=== PATIENT | male | born 1970 | race Caucasian/White ===

== ENCOUNTER 2020-03-26 17:38 | Outpatient (REF) | payer MEDICARE, MEDICAID, SELFPAY | END 2020-03-26 17:39 | disposition home or self-care (01) | LOC: HO.LAB 17:38 | PROVIDERS: Visit Provider Nurse Practitioner Family | DX: L03.113 Cellulitis of right upper limb (principal) | CPT/HCPCS: 87071; 87077; 87147; 87186; 87205 ==

== ENCOUNTER 2020-07-22 11:33 | Day surgery (SDC) | payer MEDICARE, MEDICAID, SELFPAY ==
[2020-07-15 13:12] VITALS: BMI 35.5
--- NOTE | 2020-07-18 09:51 | P.CONAN_ITS ---
Documented by User: Yumiko Omer 07/18/20 09:52 HPI - Anesthesia Eval Consult details Narrative: 50yo M for Colonoscopy PMFSH Active Problems Active Problems: All Active Problems (Updated 07/15/20 @ 13:19 by Thi Rosales) Cellulitis (Acute) Cellulitis (Acute) Physical exam (Acute) Screening for colon cancer (Acute) Cognitive developmental delay (Acute) Past Medical History Medical History (Updated 07/22/20 @ 12:28 by Anisa Kimble) Cognitive developmental delay H/O idiopathic seizure Hx of anxiety disorder Hx of bipolar disorder Lab test negative for COVID-19 virus Sleep apnea Family History Family History Father No problems noted. Mother No problems noted. Surgical History Surgical History H/O hernia repair H/O rectal polypectomy Hx of colonoscopy S/P repair of hydrocele Social History Social History Household Members Other:: resides in [facility] Housing Other:: [facility] Are you a primary care navigator to a significant other at home: No Do you presently have visiting nurse or other home services: No Alcohol intake: never Smoking Status: Never smoker Use of substances other than those prescribed or required for medical reasons: No Have you been hit, kicked, punched, or otherwise hurt by someone within the past year? If so, by whom?: No Advance Directives: No (HCP) Advance Directives Information Provided: No (awaiting fax from [facility]) Advance Directives on File: No Recently lost weight without trying: No Current occupational status: unemployed Current occupation: developmental delay-resides in [facility] Meds Allergies Allergy/AdvReac Type Severity Reaction Status Date / Time No Known Allergies Allergy Verified 07/22/20 11:57 Home Medications Medication Instructions Recorded Confirmed Last Taken Type bimatoprost 0.01 % eye drops 1 drp OPHTHALMIC (EYE) BEDTIME 03/26/20 07/15/20 Unknown History fluticasone propionate 50 2 spray INTRANASAL QAM 03/26/20 07/15/20 Unknown History mcg/actuation nasal spray,suspension naproxen 500 mg tablet 500 mg PO Q12H PRN 03/26/20 04/21/20 Unknown History olanzapine 15 mg tablet 15 mg PO BEDTIME 03/26/20 07/15/20 Unknown History pediatric multivitamin no.17 1 tab PO QAM 03/26/20 07/15/20 Unknown History propranolol 60 mg tablet 60 mg PO BID 03/26/20 07/22/20 07/22/20 09:30 History sennosides 8.6 mg tablet 8.6 mg PO BEDTIME 03/26/20 07/22/20 07/22/20 09:30 History valproic acid (as sodium salt) 250 1,000 mg PO BID 03/26/20 07/22/20 07/22/20 09:30 History mg/5 mL oral solution dorzolamide 22.3 mg-timolol 6.8 1 drp OPHTHALMIC (EYE) BID 04/21/20 07/15/20 Unknown History mg/mL eye drops acetaminophen 2 tab PO Q4H PRN 07/15/20 07/15/20 Unknown History ibuprofen 200 mg PO Q4H PRN 07/15/20 07/15/20 Unknown History olanzapine 5 mg PO QAM 07/15/20 07/22/20 07/22/20 09:30 History Exam Exam Date and Time: July 18, 2020 0951 Height,Weight and Vital Signs: Height 5 ft 6 in Weight 99.79 kg Assessment and Plan Assessment Anesthesia Assessment: Chart Reviewed Documented by User: Anisa Kimble 07/22/20 12:40 [facility] Past Medical History Medical History (Updated 07/22/20 @ 12:28 by Anisa Kimble) Cognitive developmental delay H/O idiopathic seizure Hx of anxiety disorder Hx of bipolar disorder Lab test negative for COVID-19 virus Sleep apnea Family History Family History Father No problems noted. Mother No problems noted. Family history of problems with anesthesia: No Surgical History Surgical History H/O hernia repair H/O rectal polypectomy Hx of colonoscopy S/P repair of hydrocele History of Problems with Anesthesia: No Social History Social History Household Members Other:: resides in [facility] Housing Other:: [facility] Are you a primary care navigator to a significant other at home: No Do you presently have visiting nurse or other home services: No Alcohol intake: never Smoking Status: Never smoker Use of substances other than those prescribed or required for medical reasons: No Have you been hit, kicked, punched, or otherwise hurt by someone within the past year? If so, by whom?: No Advance Directives: No (HCP) Advance Directives Information Provided: No (awaiting fax from [facility]) Advance Directives on File: No Recently lost weight without trying: No Current occupational status: unemployed Current occupation: developmental delay-resides in [facility] Meds Allergies Allergy/AdvReac Type Severity Reaction Status Date / Time No Known Allergies Allergy Verified 07/22/20 11:57 Home Medications Medication Instructions Recorded Confirmed Last Taken Type bimatoprost 0.01 % eye drops 1 drp OPHTHALMIC (EYE) BEDTIME 03/26/20 07/15/20 Unknown History fluticasone propionate 50 2 spray INTRANASAL QAM 03/26/20 07/15/20 Unknown History mcg/actuation nasal spray,suspension naproxen 500 mg tablet 500 mg PO Q12H PRN 03/26/20 04/21/20 Unknown History olanzapine 15 mg tablet 15 mg PO BEDTIME 03/26/20 07/15/20 Unknown History pediatric multivitamin no.17 1 tab PO QAM 03/26/20 07/15/20 Unknown History propranolol 60 mg tablet 60 mg PO BID 03/26/20 07/22/20 07/22/20 09:30 History sennosides 8.6 mg tablet 8.6 mg PO BEDTIME 03/26/20 07/22/20 07/22/20 09:30 History valproic acid (as sodium salt) 250 1,000 mg PO BID 03/26/20 07/22/20 07/22/20 09:30 History mg/5 mL oral solution dorzolamide 22.3 mg-timolol 6.8 1 drp OPHTHALMIC (EYE) BID 04/21/20 07/15/20 Unknown History mg/mL eye drops acetaminophen 2 tab PO Q4H PRN 07/15/20 07/15/20 Unknown History ibuprofen 200 mg PO Q4H PRN 07/15/20 07/15/20 Unknown History olanzapine 5 mg PO QAM 07/15/20 07/22/20 07/22/20 09:30 History Exam Height,Weight and Vital Signs: Vital Signs Temp Pulse Resp BP Pulse Ox 07/22/20 12:24 97.9 F 67 18 116/70 97 Airway Mallampati Class: III TM Dist: >3cm Neck ROM: Full Denture: Upper Loose/Missing/Broken Teeth: Yes (Only few teeth bottom) Heart: RRR Lungs: CTAB Assessment and Plan Assessment Anesthesia Assessment: Anesthesia Plan Discussed and Chart Reviewed Final Anesthetic Review NPO: Yes ASA Class: III Final Preanesthetic Review: No Changes in Pt Med Stat, Meds/Allgs Chart Reviewed, Consent Obtained/Reviewed and Anes Risks/Benef Reviewed Patient Risk: Intermediate Procedure Risk: Low Assessment/Block/Sedation in SS: Assess/Block/Sedation-SS Anesthetic Plan Anesthetic Plan: MAC: Disposition: Standard PACU
[2020-07-22 12:24] VITALS: BP 116/70; PULSE 67; RESP 18; TEMP 36.6; O2SAT 97
[2020-07-22] MEDS: Lactated Ringers 1,000 ML 100 ML IVCONT (12:27)
[2020-07-22 13:17] VITALS: BP 108/62; PULSE 63; RESP 20; TEMP 36.8; O2SAT 96
--- NOTE | 2020-07-22 13:20 | PM.OP ---
Brief Operative Note Date of Service: 07/22/20 Pre-op diagnosis: COLON CANCER SCREENING Post-op diagnosis: other (NORMAL EXAM, 1+INTERNAL HEMORRHOIDS) Procedure: COLONOSCOPY Implants: NONE Surgeon: Azucena Ace MD Anesthesia: MAC (LIEBIENEC, STUDENT ACCOUNTS COORDINATOR) Estimated blood loss (mL): 0 Pathology: none sent Condition: stable Disposition: PACU
--- NOTE | 2020-07-22 13:22 | W.PM.OPN ---
Operative Note Operative Note Date of Service: 07/22/20 Narrative: Date of Service: 07/22/20 Pre-op diagnosis: COLON CANCER SCREENING Post-op diagnosis: other (NORMAL EXAM, 1+INTERNAL HEMORRHOIDS) Procedure: COLONOSCOPY Implants: NONE Surgeon: Azucena Ace MD Anesthesia: MAC (LIEBIENEC, KILN HEAD HOUSE OPERATOR) FINDINGS: ROD: good tone, prostate wnl scope introduced with no difficulty. Mildly redundant left colon. Advanced to transverse, ascending colon and with gentle assist right in to the cecal cap. Appendiceal orifice seen, ileocecal valve was well seen. Mucosa had melanosis coli changes. PREP: GOOD TO EXCELLENT. Slow withdrawal, good rotational views--no lesions noted. ARV--clear 1+ Internal hemorrhoids noted. Estimated blood loss (mL): 0 Pathology: none sent Condition: stable Disposition: PACU PLAN==CURRENT RECOMMENDATIONS FOR REPEAT COLON CANCER SCREENING WOULD BE 10 YEARS.
[2020-07-22 13:32] VITALS: BP 142/79; PULSE 69; RESP 18; TEMP 36.8; O2SAT 96
== END 2020-07-22 14:10 | disposition home or self-care (01) ==
PROVIDERS: PCP Internal Medicine; Visit Provider Internal Medicine Gastroenterology
PROC: 0DJD8ZZ Inspection of Lower Intestinal Tract, Via Natural or Artificial Opening Endoscopic (ICD-10-PCS; CPT 45378; principal; 2020-07-22 12:50)
DX: Z12.11 Encounter for screening for malignant neoplasm of colon (principal); K64.8 Other hemorrhoids; Q43.8 Other specified congenital malformations of intestine
CPT/HCPCS: G0121

== ENCOUNTER → 2020-08-12 13:59 | Outpatient (BNVA) | payer MEDICARE, MEDICAID, SELFPAY | PROVIDERS: PCP Internal Medicine; Visit Provider Nurse Practitioner Family | DX: Z13.89 Encounter for screening for other disorder (principal) | CPT/HCPCS: Q3014 ==

== ENCOUNTER 2022-05-04 10:22 | Outpatient (REF) | payer MEDICARE, MEDICAID, SELFPAY ==
--- NOTE | ~2022-05-04 | XR_ITS ---
EXAMINATION: BILATERAL KNEE X-RAY CLINICAL INFORMATION: Pain COMPARISON: Previous x-rays 2019 and 2014 TECHNIQUE: 2 views of each knee FINDINGS: Left: Bone alignment is normal. No fracture or dislocation. Normal joint spaces. Small osteophyte at the quadriceps tendon insertion to the patella. No joint effusion. Right: Bone alignment is normal. No fracture or dislocation. Normal joint spaces. No joint effusion. Small osteophyte at the quadriceps tendon insertion to the patella. XR/XR knee LT 2V IMPRESSION: Small osteophytes at the quadriceps tendon insertion to the patella bilaterally. Otherwise unremarkable exam.
--- NOTE | ~2022-05-04 | XR_ITS ---
EXAMINATION: BILATERAL KNEE X-RAY CLINICAL INFORMATION: Pain COMPARISON: Previous x-rays 2019 and 2014 TECHNIQUE: 2 views of each knee FINDINGS: Left: Bone alignment is normal. No fracture or dislocation. Normal joint spaces. Small osteophyte at the quadriceps tendon insertion to the patella. No joint effusion. Right: Bone alignment is normal. No fracture or dislocation. Normal joint spaces. No joint effusion. Small osteophyte at the quadriceps tendon insertion to the patella. XR/XR knee RT 2V IMPRESSION: Small osteophytes at the quadriceps tendon insertion to the patella bilaterally. Otherwise unremarkable exam.
[2022-05-04 10:50] LABS: MANUAL DIFF FLAG NO
[2022-05-04 11:36] LABS: Basophils Percent Auto 0.3 % (0-2); Eosinophils Percent Auto 0.4 % (0-4); Hematocrit 43.8 % (42.0-52.0); Hemoglobin 14.2 g/dl (14.0-18.0); Imm Gran Pct Auto 1.4 % (0.0-0.4); Lymphocytes Absolute Auto 1.9 X10*3/uL (1.2-4.9); Lymphocytes Percent Auto 25.8 % (20-40); Mean Corpuscular HGB Conc 32.4 g/dl (31.0-36.0); Mean Corpuscular Hemoglobin 29.5 pg (27.0-33.0); Mean Corpuscular Volume 90.9 fL (80.0-98.0); Mean Platelet Volume 11.1 fL (9.4-12.4); Monocytes Absolute Auto 0.8 X10*3/uL (0.1-1.2); Monocytes Percent Auto 10.8 % (2-11); Neutrophils Absolute Auto 4.5 x10*3/uL (2.0-8.3); Neutrophils Percent Auto 61.3 % (45-73); Platelet Count 125 X10*3/uL (160-400); Red Blood Count 4.82 X10*6/uL (4.60-5.80); White Blood Count 7.3 X10*3/uL (4.8-10.8)
[2022-05-04 11:57] LABS: Alanine Aminotransferase 30 U/L (0-40); Albumin Level 3.8 g/dL (3.5-5.0); Alkaline Phosphatase 61 U/L (39-117); Anion Gap 14 (12-20); Aspartate Amino Transferase 24 U/L (5-37); Bilirubin Total 0.3 mg/dL (0.0-1.0); Blood Urea Nitrogen 17 mg/dL (9-16); Calcium 9.1 mg/dL (8.4-10.2); Carbon Dioxide 28 mmol/L (22-29); Chloride 106 mmol/L (96-108); Cholesterol 186 mg/dL; Estimated Glomerular Filt Rate > 60; Glucose Fasting 119 mg/dL (60-99); HDL Cholesterol 35 mg/dL; LDL Cholesterol Calculated 117 mg/dl; Potassium 4.8 mmol/L (3.3-5.1); Sodium 143 mmol/L (135-145); Total Protein 7.6 g/dL (6.5-8.0); Triglycerides 170 mg/dL
[2022-05-04 12:20] LABS: Thyroid Stimulating Hormone 0.77 uIU/mL (0.32-4.0)
== END 2022-05-04 10:23 | disposition home or self-care (01) ==
LOC: HO.LAB 10:22
PROVIDERS: PCP Internal Medicine; Visit Provider Internal Medicine
DX: Z13.0 Encounter for screening for diseases of the blood and blood-forming organs and certain disorders involving the immune mechanism (principal); E03.9 Hypothyroidism, unspecified; E78.5 Hyperlipidemia, unspecified; I10 Essential (primary) hypertension; M25.562 Pain in left knee; M25.561 Pain in right knee
CPT/HCPCS: 36415; 73560; 80053; 80061; 84443; 85025

== ENCOUNTER → 2022-11-04 09:24 | Outpatient (BNVA) | payer MEDICARE, MEDICAID, SELFPAY | PROVIDERS: PCP Internal Medicine; Visit Provider Orthopaedic Surgery | DX: S86.812A Strain of other muscle(s) and tendon(s) at lower leg level, left leg, initial encounter (principal) | CPT/HCPCS: 99202 ==

== ENCOUNTER 2023-05-02 12:59 | Outpatient (AMB) | payer MEDICARE, MEDICAID, SELFPAY ==
[2023-05-02 13:04] VITALS: BP 120/78; PULSE 83; O2SAT 98; BMI 36.0
--- NOTE | 2023-05-02 13:04 | MHC.PC.OV ---
Vital Signs 05/02/23 13:04 Height 5 ft 6 in Weight 223 lb BMI 36.0 BP 120/78 Blood Pressure Location Lt brachial Position Sitting Pulse 83 Pulse Source Pulse Oximeter Pulse Oximetry (%) 98 Oxygen Delivery Method Room Air Intake Visit Reasons: PE/ month f/u Fixed Wing Aircraft Flight Mechanic Required: No Team Foreman: Present Accompanied by: Self / Same As Patient Allergies No Known Allergies Allergy (Verified 05/02/23 13:06) Medication List - Last Reconciled 05/03/23 by Russell Burks MD acetaminophen 650 mg (2 x 325 mg) PO Q4H PRN 30 days bacitracin topical 2 times a day if needed q12 hrs- minor scrapes, wounds, rash, thomson- pea sized amount bimatoprost 0.01% 1 drp ophthalmic (eye) BEDTIME dorzolamide-timolol 22.3-6.8 mg/mL 1 drp ophthalmic (eye) BID fluticasone propionate 50 mcg/actuation 2 sprays intranasal QAM guaifenesin (Adult Tussin Chest Congestion) 200 mg (10 mL) PO Q4H PRN ibuprofen 200 mg PO Q4H PRN olanzapine 5 mg PO QAM olanzapine 15 mg PO BEDTIME pediatric multivitamin no.17 1 tab PO QAM propranolol 60 mg PO BID sennosides (senna) 8.6 mg PO BEDTIME valproic acid (as sodium salt) 1,000 mg PO BID Tobacco use date assessed: 07/14/22 Dental Screening Dental Screen Date: 05/02/23 Did you have a dental visit in the last 12 months?: Yes Did you have a dental problem in the last 6 months where you did not have access to dental care?: No Was dental information given to patient?: Patient has dentist HPI PE/ month f/u HPI Details has cognitive delay and doing well with psych [facility] Medical History (Updated 11/04/22 @ 10:08 by Hermes Osuna MD) Strain of left calf muscle Obesity H/O idiopathic seizure Lab test negative for COVID-19 virus Hx of anxiety disorder Hx of bipolar disorder Sleep apnea Cognitive developmental delay Surgical History Hx of colonoscopy S/P repair of hydrocele H/O rectal polypectomy H/O hernia repair Family History Father No problems noted. Mother No problems noted. Household Members Other:: resides in senior care Housing: Apartment Housing Other:: senior care Are you a primary spiritual care coordinator to a significant other at home: No Do you presently have visiting nurse or other home services: No Alcohol intake: current Alcohol intake frequency: does not drink Patient Tobacco Use Status: Never used Tobacco e-Cigarette/Vaping Use: Never Used Second Hand Smoke Exposure: No service: No Current occupational status: unemployed Current occupation: developmental delay-resides in senior care Cognitive needs: No Hearing needs: Yes Vision needs: No Questionnaire Thrive Questionnaire Date Thrive assessed: 07/14/22 HOWARD-7 AMB Questionnaire HOWARD-7 Date HOWARD - 7 assessed: 07/14/22 Source: Developed by Drs. Juan Carlos Beasley, Kailey Mane, Jose White and colleagues, with an educational viola from [employer]. Review of Systems Const Denies chills, Denies fatigue, Denies headache(s) and Denies weight loss Eyes Denies change in vision, Denies diplopia and Denies eye pain ENT Denies vertigo, Denies dizziness, Denies headache(s) and Denies nasal discharge Card Denies chest pain, Denies rapid heart rate and Denies dyspnea on exertion Resp Denies chest congestion, Denies cough, Denies pain with cough and Denies dyspnea on exertion GI Denies abdominal pain, Denies hematochezia and Denies change in bowel habits Musc Denies myalgias, Denies arthralgias and Denies joint swelling Skin/Breast Denies lesions and Denies unusual bruising Neuro Denies vertigo, Denies dizziness, Denies headache(s) and Denies focal weakness Endo Denies fatigue Physical exam (Primary Care) Vital Signs: Last Vital Signs Pulse 83 05/02/23 13:04 BP 120/78 05/02/23 13:04 Pulse Ox 98 05/02/23 13:04 Oxygen Delivery Method Room Air 05/02/23 13:04 BMI result Body Mass Index 36.0 Tobacco/Smoking Status: Tobacco use Status Tobacco use date assessed 07/14/22 05/02/23 13:11 Patient Tobacco Use Status Never used Tobacco 05/02/23 13:11 e-Cigarette/Vaping Use Never Used 05/02/23 13:11 Thrive Assessment: Date of Thrive Assessment Date Thrive assessed 07/14/22 05/02/23 13:11 Const General: cooperative, healthy appearing and no acute distress Orientation/consciousness: oriented to person, oriented to place and oriented to time HENMT Head: Yes normal to inspection, Yes normocephalic and Yes atraumatic Mouth: Normal oral and palatal mucosa present and tongue normal Throat: Yes posterior oropharynx normal and Yes uvula midline Eyes General: appearance normal, both eyes and all related structures Neck Neck: Yes normal visual inspection, Yes full ROM and Yes no lymphadenopathy Thyroid: Thyroid normal Carotids: normal carotid upstroke Chest Chest palpation & inspection: normal inspection of the chest Resp Effort & Inspection: normal respiratory effort and able to speak in complete sentences Auscultation: clear to auscultation bilaterally Cardio Jugular venous distension: no JVD Palpation: normal PMI Rate: regular rate Rhythm: regular rhythm Heart sounds: S1 normal heart sound present and S2 normal heart sound present GI Inspection: Yes normal to inspection Palpation (GI): Soft to palpation and No hepatosplenomegaly present Auscultation: normal bowel sounds General: Yes no CVA tenderness Back/Spine/Pelvis Back: no CVA tenderness Skin General skin exam: no rashes or lesions noted Neuro General: oriented to person, oriented to place and oriented to time Extrem General: Yes normal to inspection and Yes full ROM Assessment and Plan Assessment & Plan (1) Physical exam: Code(s): Z00.00 - Encounter for general adult medical examination without abnormal findings Plan: labs (2) Cognitive developmental delay: Code(s): F81.9 - Developmental disorder of scholastic skills, unspecified Plan: stable; as per psych Orders: Orders Lipid Panel 05/02/23 E78.5 - Hyperlipidemia, unspecified Complete Blood Count Auto Diff 05/02/23 D64.9 - Anemia, unspecified Comprehensive [place]. Panel Fast 05/02/23 N28.9 - Disorder of kidney and ureter, unspecified Thyroid Stimulating Hormone 05/02/23 E03.9 - Hypothyroidism, unspecified Medications: Refilled fluticasone propionate 50 mcg/actuation 2 sprays intranasal QAM 16 grams 8RF Coding Level of Care Code Est Pt Prev Care 40-64y(24248) Diagnoses Physical exam Z00.00 Cognitive developmental delay F81.9
== END 2023-05-02 13:31 | disposition home or self-care (01) ==
PROVIDERS: PCP Internal Medicine; Visit Provider Internal Medicine
DX: Z00.00 Encounter for general adult medical examination without abnormal findings (principal); F81.9 Developmental disorder of scholastic skills, unspecified
CPT/HCPCS: 99396

== ENCOUNTER 2023-05-17 09:10 | Outpatient (REF) | payer MEDICARE, MEDICAID, SELFPAY ==
[2023-05-17 10:37] LABS: MANUAL DIFF FLAG NO
[2023-05-17 10:43] LABS: Basophils Percent Auto 0.3 % (0-2); Eosinophils Percent Auto 0.4 % (0-4); Hematocrit 42.8 % (42.0-52.0); Imm Gran Abs Auto 0.04 X10*3/uL (0.00-0.03); Imm Gran Pct Auto 0.5 % (0.0-0.4); Lymphocytes Absolute Auto 1.8 X10*3/uL (1.2-4.9); Mean Corpuscular HGB Conc 32.7 g/dl (31.0-36.0); Mean Corpuscular Hemoglobin 29.9 pg (27.0-33.0); Mean Corpuscular Volume 91.5 fL (80.0-98.0); Mean Platelet Volume 10.5 fL (9.4-12.4); Monocytes Absolute Auto 0.8 X10*3/uL (0.1-1.2); Neutrophils Percent Auto 64.8 % (45-73); Platelet Count 124 X10*3/uL (160-400); Red Blood Count 4.68 X10*6/uL (4.60-5.80); Red Cell Distribution Width 12.6 % (11.0-16.0); White Blood Count 7.6 X10*3/uL (4.8-10.8)
[2023-05-17 11:02] LABS: Alanine Aminotransferase 9 U/L (0-40); Albumin Level 3.7 g/dL (3.5-5.0); Alkaline Phosphatase 59 U/L (39-117); Anion Gap 12 (12-20); Aspartate Amino Transferase 14 U/L (5-37); Bilirubin Total 0.3 mg/dL (0.0-1.0); Blood Urea Nitrogen 15 mg/dL (9-16); Calcium 8.9 mg/dL (8.4-10.2); Carbon Dioxide 29 mmol/L (22-29); Chloride 108 mmol/L (96-108); Cholesterol 163 mg/dL (<200); Estimated Glomerular Filt Rate > 60; Glucose Fasting 98 mg/dL (60-99); HDL Cholesterol 30 mg/dL (>40); LDL Cholesterol Calculated 106 mg/dL (<100); Potassium 4.6 mmol/L (3.3-5.1); Sodium 144 mmol/L (135-145); Total Protein 7.5 g/dL (6.5-8.0); Triglycerides 139 mg/dL (<150)
[2023-05-17 11:19] LABS: Thyroid Stimulating Hormone 1.06 uIU/mL (0.32-4.0)
== END 2023-05-17 09:11 | disposition home or self-care (01) ==
LOC: HO.10HDL 09:10
PROVIDERS: Visit Provider Internal Medicine
DX: E03.9 Hypothyroidism, unspecified (principal); N28.9 Disorder of kidney and ureter, unspecified; D64.9 Anemia, unspecified; E78.5 Hyperlipidemia, unspecified
CPT/HCPCS: 36415; 80053; 80061; 84443; 85025

== ENCOUNTER 2023-10-12 08:31 | Outpatient (AMB) | payer MEDICARE, MEDICAID, SELFPAY ==
--- NOTE | 2023-10-12 08:34 | MHC.PC.OV ---
Vital Signs 10/12/23 08:35 Height 5 ft 6 in Weight 210 lb BMI 33.9 BP 122/74 Blood Pressure Location Lt brachial Position Sitting Pulse 65 Pulse Source Pulse Oximeter Pulse Oximetry (%) 97 Oxygen Delivery Method Room Air Intake Visit Reasons: 6 month F/U chronic conditions Library Clerk Required: No Hydrogenation Still Operator: Present Allergies No Known Allergies Allergy (Verified 10/12/23 08:35) Medication List - Last Reconciled 10/12/23 by Russell Burks MD acetaminophen 650 mg (2 x 325 mg) PO Q4H PRN 30 days bacitracin topical 2 times a day if needed q12 hrs- minor scrapes, wounds, rash, thomson- pea sized amount bimatoprost 0.01% 1 drp ophthalmic (eye) BEDTIME dorzolamide-timolol 22.3-6.8 mg/mL 1 drp ophthalmic (eye) BID fluticasone propionate 50 mcg/actuation 2 sprays intranasal QAM guaifenesin (Adult Tussin Chest Congestion) 200 mg (10 mL) PO Q4H PRN ibuprofen 200 mg PO Q4H PRN olanzapine 5 mg PO QAM olanzapine 15 mg PO BEDTIME pediatric multivitamin no.17 1 tab PO QAM propranolol 60 mg PO BID sennosides (senna) 8.6 mg PO BEDTIME valproic acid (as sodium salt) 1,000 mg PO BID Tobacco use date assessed: 10/12/23 Dental Screening Dental Screen Date: 10/12/23 Did you have a dental visit in the last 12 months?: Yes Did you have a dental problem in the last 6 months where you did not have access to dental care?: No Was dental information given to patient?: Patient has dentist HPI 6 month F/U chronic conditions HPI Details cognitive delay and psych issues; sees psych; doing well PFSH Medical History (Updated 11/04/22 @ 10:08 by Hermes Osuna MD) Strain of left calf muscle Obesity H/O idiopathic seizure Lab test negative for COVID-19 virus Hx of anxiety disorder Hx of bipolar disorder Sleep apnea Cognitive developmental delay Surgical History Hx of colonoscopy S/P repair of hydrocele H/O rectal polypectomy H/O hernia repair Family History Father No problems noted. Mother No problems noted. Social History Household Members Other:: resides in skilled nursing Housing: Apartment Housing Other:: skilled nursing Are you a primary live in caregiver to a significant other at home: No Do you presently have visiting nurse or other home services: No Alcohol intake: current Alcohol intake frequency: does not drink Patient Tobacco Use Status: Never used Tobacco e-Cigarette/Vaping Use: Never Used Second Hand Smoke Exposure: No service: No Current occupational status: unemployed Current occupation: developmental delay-resides in skilled nursing Cognitive needs: No Hearing needs: Yes Vision needs: No Questionnaire PHQ-9 Over the last 2 weeks, how often have you been bothered by any of the following problems? 1. Little interest or pleasure in doing things: not at all 2. Feeling down, depressed, or hopeless: not at all 3. Trouble falling or staying asleep, or sleeping too much: not at all 4. Feeling tired or having little energy: not at all 5. Poor appetite or overeating: not at all 6. Feeling bad about yourself - or that you are a failure or have let yourself or your family down: not at all 7. Trouble concentrating on things, such as reading the newspaper or watching television: not at all 8. Moving or speaking so slowly that other people could have noticed. Or the opposite - being so fidgety or restless that you have been moving around a lot more than usual: not at all 9. Thoughts that you would be better off or of hurting yourself in some way: not at all Total score: 0 Depression Screening Interpretation: Negative Depression Screening Done: Yes 48332 - PHQ-9 Billing: Yes Source: Developed by Drs. Juan Carlos Beasley, Kailey Mane, Jose White and colleagues, with an educational viola from [employer]. Thrive Questionnaire Date Thrive assessed: 10/12/23 I am a: Patient What is your living situation today?: I have a steady place to live Within the past 12 months, did the food you bought not last and you didn't have the money to get more?: Never true Within the past 12 months, did you worry whether your food would run out before you got money to buy more?: Never true Do you have trouble paying for medicines?: No Do you have trouble getting transportation to medical appointments?: No Do you have trouble paying your heating and electricity bill?: No Do you have trouble taking care of your child, family member or friend?: No Do you have trouble with day-to-day activities such as bathing, preparing meals, shopping, managing finances, etc.?: No Are you currently unemployed and looking for a job?: No Are you interested in more education?: No Please select the resources that you would like help with: None THRIVE Score: 0 AUDIT C Alcohol Use Questionnaire (AUDIT-C) 1. How often do you have a drink containing alcohol?: Never 3. How often do you have six or more drinks on one occasion?: Never Total Score: 0 Score Reviewed/Action Taken: Yes HOWARD-7 AMB Questionnaire HOWARD-7 Date HOWARD - 7 assessed: 10/12/23 Feeling nervous, anxious, or on edge: 0 = Not at all Not being able to stop or control worryin = Not at all Worrying too much about different things: 0 = Not at all Trouble relaxin = Not at all Being so restless that it is hard to sit still: 0 = Not at all Becoming easily annoyed or irritable: 0 = Not at all Feeling afraid as if something awful might happen: 0 = Not at all Total HOWARD-7 score (0-4 normal; 5-9 mild; 10-14 moderate; 15-21 severe): 0 Source: Developed by Drs. Juan Carlos Beasley, Kailey Mane, Jose White and colleagues, with an educational viola from [employer]. HOWARD-7 Assessment Billing HOWARD-7 Assessment Tool: HOWARD-7 Assessment 42090 Review of Systems Const Denies chills, Denies headache(s) and Denies weight loss ENT Denies headache(s) Card Denies chest pain, Denies syncope, Denies irregular heart rhythm and Denies dyspnea Resp Denies chest congestion, Denies cough and Denies dyspnea GI Denies abdominal pain, Denies change in stool character, Denies nausea and Denies vomiting Musc Denies deformity and Denies joint swelling Neuro Denies syncope and Denies headache(s) Physical exam (Primary Care) Vital Signs: Last Vital Signs Pulse 65 10/12/23 08:35 BP 122/74 10/12/23 08:35 Pulse Ox 97 10/12/23 08:35 Oxygen Delivery Method Room Air 10/12/23 08:35 BMI result Body Mass Index 33.9 Tobacco/Smoking Status: Tobacco use Status Tobacco use date assessed 10/12/23 10/12/23 08:42 Patient Tobacco Use Status Never used Tobacco 10/12/23 08:42 e-Cigarette/Vaping Use Never Used 10/12/23 08:42 PHQ-9: PHQ-9 Score PHQ-9: Total score 0 10/12/23 08:42 Depression Screening Interpretation: Negative Thrive Assessment: Date of Thrive Assessment Date Thrive assessed 10/12/23 10/12/23 08:42 Const General: cooperative, comfortable, no acute distress and alert Neck Neck: Yes no lymphadenopathy Thyroid: Thyroid normal Resp Effort & Inspection: normal respiratory effort Auscultation: clear to auscultation bilaterally Percussion: percussion normal Cardio Jugular venous distension: no JVD Palpation: normal PMI Rate: regular rate Rhythm: regular rhythm Heart sounds: S1 normal heart sound present and S2 normal heart sound present GI Inspection: Yes normal to inspection Palpation (GI): No hepatosplenomegaly present Skin General skin exam: no rashes or lesions noted Extrem General: Yes no clubbing, cyanosis or edema Assessment and Plan Assessment & Plan (1) Cognitive developmental delay: Code(s): F81.9 - Developmental disorder of scholastic skills, unspecified Plan: stable; same rx Orders: Orders Lipid Panel Today Z13.220 - Encounter for screening for lipoid disorders Thyroid Stimulating Hormone Today Z13.29 - Encounter for screening for other suspected endocrine disorder Complete Blood Count Auto Diff Today Z13.0 - Encounter for screening for diseases of the blood and blood-forming organs and certain disorders involving the immune mechanism Comprehensive [place]. Panel Fast Today Z13.9 - Encounter for screening, unspecified Prostate Specific Antigen Scr Today Z00.00 - Encounter for general adult medical examination without abnormal findings Coding Level of Care Code Est Pt Level 3 (53587) Diagnoses Cognitive developmental delay F81.9 Additional Codes HOWARD-7 Assessment Billing - HOWARD-7 Assessment Tool: HOWARD-7 Assessment 57841 ([id number])
[2023-10-12 08:35] VITALS: BP 122/74; PULSE 65; O2SAT 97; BMI 33.9
== END 2023-10-12 08:54 | disposition home or self-care (01) ==
PROVIDERS: PCP Internal Medicine; Visit Provider Internal Medicine
DX: F81.9 Developmental disorder of scholastic skills, unspecified (principal)
CPT/HCPCS: 99213

== ENCOUNTER 2023-11-22 10:14 | Outpatient (REF) | payer MEDICARE, MEDICAID, SELFPAY ==
[2023-11-22 10:28] LABS: MANUAL DIFF FLAG NO
[2023-11-22 10:43] LABS: Basophils Percent Auto 0.2 % (0-2); Eosinophils Percent Auto 0.8 % (0-4); Hematocrit 40.2 % (42.0-52.0); Hemoglobin 13.5 g/dl (14.0-18.0); Imm Gran Abs Auto 0.03 X10*3/uL (0.00-0.03); Imm Gran Pct Auto 0.6 % (0.0-0.4); Lymphocytes Absolute Auto 1.9 X10*3/uL (1.2-4.9); Lymphocytes Percent Auto 35.2 % (20-40); Mean Corpuscular HGB Conc 33.6 g/dl (31.0-36.0); Mean Corpuscular Hemoglobin 29.7 pg (27.0-33.0); Mean Corpuscular Volume 88.5 fL (80.0-98.0); Mean Platelet Volume 9.8 fL (9.4-12.4); Monocytes Absolute Auto 0.7 X10*3/uL (0.1-1.2); Monocytes Percent Auto 13.2 % (2-11); Neutrophils Absolute Auto 2.7 x10*3/uL (2.0-8.3); Platelet Count 147 X10*3/uL (160-400); Red Blood Count 4.54 X10*6/uL (4.60-5.80); Red Cell Distribution Width 13.5 % (11.0-16.0); White Blood Count 5.3 X10*3/uL (4.8-10.8)
[2023-11-22 11:55] LABS: Alanine Aminotransferase 16 U/L (0-40); Albumin Level 3.9 g/dL (3.5-5.0); Alkaline Phosphatase 55 U/L (39-117); Anion Gap 11 (12-20); Aspartate Amino Transferase 19 U/L (5-37); Bilirubin Total 0.4 mg/dL (0.0-1.0); Blood Urea Nitrogen 13 mg/dL (9-16); Calcium 9.1 mg/dL (8.4-10.2); Carbon Dioxide 29 mmol/L (22-29); Chloride 108 mmol/L (96-108); Cholesterol 187 mg/dL (<200); Estimated Glomerular Filt Rate > 60; Glucose Fasting 98 mg/dL (60-99); HDL Cholesterol 30 mg/dL (>40); LDL Cholesterol Calculated 132 mg/dL (<100); Potassium 4.4 mmol/L (3.3-5.1); Sodium 144 mmol/L (135-145); Total Protein 7.9 g/dL (6.5-8.0); Triglycerides 128 mg/dL (<150)
[2023-11-22 12:05] LABS: Prostate Specific Antigen Scr 0.28 ng/mL (<0.05-4.0)
== END 2023-11-22 10:15 | disposition home or self-care (01) ==
LOC: HO.LAB 10:14
PROVIDERS: PCP Internal Medicine; Visit Provider Internal Medicine
DX: Z00.00 Encounter for general adult medical examination without abnormal findings (principal); Z13.29 Encounter for screening for other suspected endocrine disorder; Z13.220 Encounter for screening for lipoid disorders; Z13.9 Encounter for screening, unspecified; Z12.5 Encounter for screening for malignant neoplasm of prostate
CPT/HCPCS: 36415; 80053; 80061; 84153; 84443; 85025

== ENCOUNTER 2024-04-11 09:30 | Outpatient (AMB) | payer MEDICARE, MEDICAID, SELFPAY ==
--- NOTE | 2024-04-11 09:34 | MHC.PC.OV ---
Vital Signs 04/11/24 09:36 Height 5 ft 6 in Weight 212 lb 4 oz BMI 34.3 BP 102/68 Blood Pressure Location Lt brachial Position Sitting Pulse 66 Pulse Source Pulse Oximeter Pulse Oximetry (%) 96 Oxygen Delivery Method Room Air Intake Visit Reasons: 6 month f/u Intake Note: Patient is here to follow up on Congnitive developmental Delay. 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 Accompanied by: Staff Allergies No Known Allergies Allergy (Verified 04/11/24 09:35) Medication List - Last Reconciled 04/12/24 by Russell Burks MD acetaminophen 650 mg (2 x 325 mg) PO Q4H PRN 30 days bacitracin topical 2 times a day if needed q12 hrs- minor scrapes, wounds, rash, thomson- pea sized amount bimatoprost 0.01% 1 drp ophthalmic (eye) BEDTIME dorzolamide-timolol 22.3-6.8 mg/mL 1 drp ophthalmic (eye) BID fluticasone propionate 50 mcg/actuation 2 sprays intranasal QAM guaifenesin (Adult Tussin Chest Congestion) 200 mg (10 mL) PO Q4H PRN ibuprofen 200 mg PO Q4H PRN olanzapine 5 mg PO QAM olanzapine 15 mg PO BEDTIME pediatric multivitamin no.17 1 tab PO QAM propranolol 60 mg PO BID sennosides (senna) 8.6 mg PO BEDTIME valproic acid (as sodium salt) 1,000 mg PO BID Tobacco use date assessed: 04/11/24 Dental Screening Dental Screen Date: 10/12/23 HPI 6 month f/u HPI Details has psychosis on rx; sees psych regularly [facility] Medical History (Updated 04/12/24 @ 12:14 by Russell Burks MD) Strain of left calf muscle Obesity H/O idiopathic seizure Lab test negative for COVID-19 virus Hx of anxiety disorder Hx of bipolar disorder Sleep apnea Cognitive developmental delay Surgical History Hx of colonoscopy S/P repair of hydrocele H/O rectal polypectomy H/O hernia repair Family History (Updated 04/11/24 @ 09:35 by LUKE Baez) Father No problems noted. Mother No problems noted. Other Mental health disorder Social History (Reviewed 04/11/24 @ 09:34 by CELIA Baez Household Members Other:: resides in correction Housing: Apartment Housing Other:: correction Are you a primary child care group leader to a significant other at home: No Do you presently have visiting nurse or other home services: No Alcohol intake: current Alcohol intake frequency: does not drink Patient Tobacco Use Status: Never used Tobacco e-Cigarette/Vaping Use: Never Used Second Hand Smoke Exposure: No service: No Current occupational status: unemployed Current occupation: developmental delay-resides in correction Cognitive needs: No Hearing needs: Yes Vision needs: No Questionnaire Thrive Questionnaire Date Thrive assessed: 10/12/23 HOWARD-7 AMB Questionnaire HOWARD-7 Date HOWARD - 7 assessed: 10/12/23 Source: Developed by Drs. Juan Carlos Beasley, Kailey Mane, Jose White and colleagues, with an educational viola from [employer]. Review of Systems Const Denies chills, Denies headache(s) and Denies weight loss ENT Denies headache(s) Card Denies chest pain, Denies syncope, Denies irregular heart rhythm and Denies dyspnea Resp Denies chest congestion, Denies cough and Denies dyspnea GI Denies abdominal pain, Denies change in stool character, Denies nausea and Denies vomiting Musc Denies deformity and Denies joint swelling Neuro Denies syncope and Denies headache(s) Physical exam (Primary Care) Vital Signs: Last Vital Signs Pulse 66 04/11/24 09:36 BP 102/68 04/11/24 09:36 Pulse Ox 96 04/11/24 09:36 Oxygen Delivery Method Room Air 04/11/24 09:36 BMI result Body Mass Index 34.3 Tobacco/Smoking Status: Tobacco use Status Tobacco use date assessed 04/11/24 04/11/24 09:41 Patient Tobacco Use Status Never used Tobacco 04/11/24 09:41 e-Cigarette/Vaping Use Never Used 04/11/24 09:41 Thrive Assessment: Date of Thrive Assessment Date Thrive assessed 10/12/23 04/11/24 09:41 Const General: cooperative, comfortable, no acute distress and alert Neck Neck: Yes no lymphadenopathy Thyroid: Thyroid normal Resp Effort & Inspection: normal respiratory effort Auscultation: clear to auscultation bilaterally Percussion: percussion normal Cardio Jugular venous distension: no JVD Palpation: normal PMI Rate: regular rate Rhythm: regular rhythm Heart sounds: S1 normal heart sound present and S2 normal heart sound present GI Inspection: Yes normal to inspection Palpation (GI): No hepatosplenomegaly present Skin General skin exam: no rashes or lesions noted Extrem General: Yes no clubbing, cyanosis or edema Office Procedures Flu Questionnaire Does the patient have a severe egg allergy?: No Does the patient have severe life threatening allergies?: No Does the patient have a fever or illness today?: No Has the patient ever had Guillain-[place] Syndrome?: No Has the patient ever had any past reaction to a flu shot?: No Immunizations Fluarix Triv [id number] (PF) 45 mcg (15 mcg x 3)/0.5 mL IM syringe Performing Provider: Russell Burks MD [facility] [place] [facility] Administered by: SABINE Storm on 04/11/24 09:46 Dose Route Admin Location Dispensed Lot Number Expiration Date [facility] [place] Petroleum Sampler 0.5 mL IM Right Deltoid 0.5 mL [id number] 12/03/24 28523-579-88 Oxynade VIS Given Date VIS Provided VIS Publication Date 04/11/24 Single Vaccine 21 Eligibility Eligibility Date Funding Source Not [facility] Eligible 04/11/24 Private Coding Level of Care Code Est Pt Level 3 (72135) Diagnoses Psychosis F29 Assessment & Plan Assessment & Plan (1) Psychosis: Code(s): F29 - Unspecified psychosis not due to a substance or known physiological condition Category: Medical Plan: stable; as per psych Orders: Orders Influenza [id number] Immunization 04/11/24 Z23 - Encounter for immunization
[2024-04-11 09:36] VITALS: BP 102/68; PULSE 66; O2SAT 96; BMI 34.3
== END 2024-04-11 09:54 | disposition home or self-care (01) ==
LOC: HO.HMCH 09:30
PROVIDERS: PCP Internal Medicine; Visit Provider Internal Medicine
DX: F29 Unspecified psychosis not due to a substance or known physiological condition (principal)

== ENCOUNTER → 2024-04-11 09:30 | Outpatient (BNVA) | payer MEDICARE, MEDICAID, SELFPAY | PROVIDERS: PCP Internal Medicine; Visit Provider Internal Medicine | DX: Z23 Encounter for immunization (principal); F29 Unspecified psychosis not due to a substance or known physiological condition | CPT/HCPCS: 90471; 90656; 99212 ==

== ENCOUNTER 2024-05-08 10:11 | Outpatient (REF) | payer MEDICARE, MEDICAID, SELFPAY ==
[2024-05-08 10:55] LABS: MANUAL DIFF FLAG NO
[2024-05-08 11:50] LABS: Basophils Percent Auto 0.4 % (0-2); Eosinophils Percent Auto 0.7 % (0-4); Hematocrit 43.1 % (42.0-52.0); Hemoglobin 13.9 g/dl (14.0-18.0); Imm Gran Abs Auto 0.07 X10*3/uL (0.00-0.03); Imm Gran Pct Auto 1.2 % (0.0-0.4); Lymphocytes Absolute Auto 1.5 X10*3/uL (1.2-4.9); Lymphocytes Percent Auto 26.2 % (20-40); Mean Corpuscular HGB Conc 32.3 g/dl (31.0-36.0); Mean Corpuscular Hemoglobin 29.6 pg (27.0-33.0); Mean Corpuscular Volume 91.9 fL (80.0-98.0); Monocytes Absolute Auto 0.8 X10*3/uL (0.1-1.2); Monocytes Percent Auto 13.4 % (2-11); NRBC Pct Auto 0.4 /100WBC (0.0-0.2); Neutrophils Absolute Auto 3.3 x10*3/uL (2.0-8.3); Neutrophils Percent Auto 58.1 % (45-73); Platelet Count 117 X10*3/uL (160-400); Red Blood Count 4.69 X10*6/uL (4.60-5.80); Red Cell Distribution Width 13.2 % (11.0-16.0); White Blood Count 5.7 X10*3/uL (4.8-10.8)
[2024-05-08 13:08] LABS: Alanine Aminotransferase 37 U/L (0-40); Albumin Level 3.7 g/dL (3.5-5.0); Alkaline Phosphatase 61 U/L (39-117); Anion Gap 6 (12-20); Aspartate Amino Transferase 29 U/L (5-37); Bilirubin Total 0.3 mg/dL (0.0-1.0); Blood Urea Nitrogen 13 mg/dL (9-16); Calcium 8.2 mg/dL (8.4-10.2); Carbon Dioxide 34 mmol/L (22-29); Chloride 106 mmol/L (96-108); Cholesterol 203 mg/dL (<200); Estimated Glomerular Filt Rate > 60; Glucose Fasting 147 mg/dL (60-99); HDL Cholesterol 41 mg/dL (>40); LDL Cholesterol Calculated 123 mg/dL (<100); Sodium 142 mmol/L (135-145); Total Protein 7.4 g/dL (6.5-8.0); Triglycerides 198 mg/dL (<150)
== END 2024-05-08 10:12 | disposition home or self-care (01) ==
LOC: HO.LAB 10:11
PROVIDERS: PCP Internal Medicine; Visit Provider Internal Medicine
DX: Z00.00 Encounter for general adult medical examination without abnormal findings (principal); F29 Unspecified psychosis not due to a substance or known physiological condition; Z13.220 Encounter for screening for lipoid disorders; Z13.29 Encounter for screening for other suspected endocrine disorder; Z13.0 Encounter for screening for diseases of the blood and blood-forming organs and certain disorders involving the immune mechanism; Z13.9 Encounter for screening, unspecified
CPT/HCPCS: 36415; 80053; 80061; 84443; 85025; 96127; 99396

== ENCOUNTER 2024-05-08 10:11 | Outpatient (AMB) | payer MEDICARE, MEDICAID, SELFPAY ==
--- NOTE | 2024-05-08 10:17 | A.OFFPC_ITS ---
Vital Signs 05/08/24 10:18 Height 5 ft 6 in Weight 217 lb 2 oz BMI 35.0 BP 118/76 Blood Pressure Location Lt brachial Position Sitting Pulse 64 Pulse Source Pulse Oximeter Pulse Oximetry (%) 97 Oxygen Delivery Method Room Air Intake Visit Reasons: ANNUAL Manager Integration Required: No Accompanied by: Self / Same As Patient Allergies No Known Allergies Allergy (Verified 05/08/24 10:19) Medication List - Last Reconciled 05/09/24 by Russell Burks MD acetaminophen 650 mg (2 x 325 mg) PO Q4H PRN 30 days bacitracin topical 2 times a day if needed q12 hrs- minor scrapes, wounds, rash, thomson- pea sized amount bimatoprost 0.01% 1 drp ophthalmic (eye) BEDTIME dorzolamide-timolol 22.3-6.8 mg/mL 1 drp ophthalmic (eye) BID fluticasone propionate 50 mcg/actuation 2 sprays intranasal QAM guaifenesin (Adult Tussin Chest Congestion) 200 mg (10 mL) PO Q4H PRN ibuprofen 200 mg PO Q4H PRN olanzapine 5 mg PO QAM olanzapine 15 mg PO BEDTIME pediatric multivitamin no.17 1 tab PO QAM propranolol 60 mg PO BID sennosides (senna) 8.6 mg PO BEDTIME valproic acid (as sodium salt) 1,000 mg PO BID Tobacco use date assessed: 05/08/24 Dental Screening Dental Screen Date: 05/08/24 Did you have a dental visit in the last 12 months?: Yes Did you have a dental problem in the last 6 months where you did not have access to dental care?: No Was dental information given to patient?: Patient has dentist HPI ANNUAL HPI Details psychosis; sees psych and doing well [facility] Medical History (Updated 04/12/24 @ 12:14 by Russell Burks MD) Strain of left calf muscle Obesity H/O idiopathic seizure Lab test negative for COVID-19 virus Hx of anxiety disorder Hx of bipolar disorder Sleep apnea Cognitive developmental delay Surgical History Hx of colonoscopy S/P repair of hydrocele H/O rectal polypectomy H/O hernia repair Family History Father No problems noted. Mother No problems noted. Other Mental health disorder Social History Household Members Other:: resides in residential Housing: Apartment Housing Other:: residential Are you a primary customer care manager to a significant other at home: No Do you presently have visiting nurse or other home services: No Alcohol intake: current Alcohol intake frequency: does not drink Patient Tobacco Use Status: Never used Tobacco e-Cigarette/Vaping Use: Never Used Second Hand Smoke Exposure: No service: No Current occupational status: unemployed Current occupation: developmental delay-resides in residential Cognitive needs: No Hearing needs: Yes Vision needs: No Questionnaire PHQ-9 Over the last 2 weeks, how often have you been bothered by any of the following problems? 1. Little interest or pleasure in doing things: not at all 2. Feeling down, depressed, or hopeless: not at all 3. Trouble falling or staying asleep, or sleeping too much: not at all 4. Feeling tired or having little energy: not at all 5. Poor appetite or overeating: not at all 6. Feeling bad about yourself - or that you are a failure or have let yourself or your family down: not at all 7. Trouble concentrating on things, such as reading the newspaper or watching television: not at all 8. Moving or speaking so slowly that other people could have noticed. Or the opposite - being so fidgety or restless that you have been moving around a lot more than usual: not at all 9. Thoughts that you would be better off or of hurting yourself in some way: not at all Total score: 0 Depression Screening Interpretation: Negative Depression Screening Done: Yes 84714 - PHQ-9 Billing: Yes Source: Developed by Drs. Juan Carlos Beasley, Kailey Mane, Jose White and colleagues, with an educational viola from [employer] Thrive Questionnaire Date Thrive assessed: 05/08/24 I am a: Patient What is your living situation today?: I have a steady place to live Within the past 12 months, did the food you bought not last and you didn't have the money to get more?: Never true Within the past 12 months, did you worry whether your food would run out before you got money to buy more?: Never true Do you have trouble paying for medicines?: No Do you have trouble getting transportation to medical appointments?: No Do you have trouble paying your heating and electricity bill?: No Do you have trouble taking care of your child, family member or friend?: No Do you have trouble with day-to-day activities such as bathing, preparing meals, shopping, managing finances, etc.?: No Are you currently unemployed and looking for a job?: No Are you interested in more education?: No Please select the resources that you would like help with: None Currently or been in a relationship where the following occur: No concerns reported THRIVE Score: 0 AUDIT C Alcohol Use Questionnaire (AUDIT-C) 1. How often do you have a drink containing alcohol?: Never 3. How often do you have six or more drinks on one occasion?: Never Total Score: 0 Score Reviewed/Action Taken: Yes HOWARD-7 AMB Questionnaire HOWARD-7 Date HOWARD - 7 assessed: 05/08/24 Feeling nervous, anxious, or on edge: 0 = Not at all Not being able to stop or control worryin = Not at all Worrying too much about different things: 0 = Not at all Trouble relaxin = Not at all Being so restless that it is hard to sit still: 0 = Not at all Becoming easily annoyed or irritable: 0 = Not at all Feeling afraid as if something awful might happen: 0 = Not at all Total HOWARD-7 score (0-4 normal; 5-9 mild; 10-14 moderate; 15-21 severe): 0 Source: Developed by Drs. Juan Carlos Beasely, Kailey Mane, Jose White and colleagues, with an educational viola from [employer] Review of Systems Const Denies chills, Denies fatigue, Denies headache(s) and Denies weight loss Eyes Denies change in vision, Denies diplopia and Denies eye pain ENT Denies vertigo, Denies dizziness, Denies headache(s) and Denies nasal discharge Card Denies chest pain, Denies rapid heart rate and Denies dyspnea on exertion Resp Denies chest congestion, Denies cough, Denies pain with cough and Denies dyspnea on exertion GI Denies abdominal pain, Denies hematochezia and Denies change in bowel habits Musc Denies myalgias, Denies arthralgias and Denies joint swelling Skin/Breast Denies lesions and Denies unusual bruising Neuro Denies vertigo, Denies dizziness, Denies headache(s) and Denies focal weakness Endo Denies fatigue Physical exam (Primary Care) Vital Signs: Last Vital Signs Pulse 64 05/08/24 10:18 BP 118/76 05/08/24 10:18 Pulse Ox 97 05/08/24 10:18 Oxygen Delivery Method Room Air 05/08/24 10:18 BMI result Body Mass Index 35.0 Tobacco/Smoking Status: Tobacco use Status Tobacco use date assessed 05/08/24 05/08/24 10:23 Patient Tobacco Use Status Never used Tobacco 05/08/24 10:23 e-Cigarette/Vaping Use Never Used 05/08/24 10:23 PHQ-9: PHQ-9 Score PHQ-9: Total score 0 05/08/24 10:23 Depression Screening Interpretation: Negative Thrive Assessment: Date of Thrive Assessment Date Thrive assessed 05/08/24 05/08/24 10:23 Currently or been in a relationship where the following occur: No concerns reported Const General: cooperative, healthy appearing and no acute distress Orientation/consciousness: oriented to person, oriented to place and oriented to time HENIA Head: Yes normal to inspection, Yes normocephalic and Yes atraumatic Mouth: Normal oral and palatal mucosa present and tongue normal Throat: Yes posterior oropharynx normal and Yes uvula midline Eyes General: appearance normal, both eyes and all related structures Neck Neck: Yes normal visual inspection, Yes full ROM and Yes no lymphadenopathy Thyroid: Thyroid normal Carotids: normal carotid upstroke Chest Chest palpation & inspection: normal inspection of the chest Resp Effort & Inspection: normal respiratory effort and able to speak in complete sentences Auscultation: clear to auscultation bilaterally Cardio Jugular venous distension: no JVD Palpation: normal PMI Rate: regular rate Rhythm: regular rhythm Heart sounds: S1 normal heart sound present and S2 normal heart sound present GI Inspection: Yes normal to inspection Palpation (GI): Soft to palpation and No hepatosplenomegaly present Auscultation: normal bowel sounds General: Yes no CVA tenderness Back/Spine/Pelvis Back: no CVA tenderness Skin General skin exam: no rashes or lesions noted Neuro General: oriented to person, oriented to place and oriented to time Extrem General: Yes normal to inspection and Yes full ROM Coding Level of Care Code Est Pt Prev Care 40-64y(31992) Diagnoses Physical exam Z00.00 Psychosis F29 Additional Codes PHQ-9 - 44607 - PHQ-9 Billing: Yes ([id number]) Assessment & Plan Assessment & Plan (1) Physical exam: Code(s): Z00.00 - Encounter for general adult medical examination without abnormal findings Category: Medical Plan: do labs (2) Psychosis: Code(s): F29 - Unspecified psychosis not due to a substance or known physiological condition Category: Medical Plan: stable; per psych Orders: Orders Lipid Panel Today Z13.220 - Encounter for screening for lipoid disorders Thyroid Stimulating Hormone Today Z13.29 - Encounter for screening for other suspected endocrine disorder Complete Blood Count Auto Diff Today Z13.0 - Encounter for screening for diseases of the blood and blood-forming organs and certain disorders involving the immune mechanism Comprehensive [place]. Panel Fast Today Z13.9 - Encounter for screening, unspecified
[2024-05-08 10:18] VITALS: BP 118/76; PULSE 64; O2SAT 97; BMI 35.0
== END 2024-05-08 10:35 | disposition home or self-care (01) ==
PROVIDERS: PCP Internal Medicine; Visit Provider Internal Medicine
DX: Z00.00 Encounter for general adult medical examination without abnormal findings (principal); F29 Unspecified psychosis not due to a substance or known physiological condition

== ENCOUNTER 2024-11-16 12:52 | Outpatient (AMB) | payer MEDICARE, MEDICAID, SELFPAY ==
[2024-11-16 12:57] VITALS: BP 122/78; PULSE 60; RESP 16; TEMP 37; O2SAT 98; BMI 34.2
--- NOTE | 2024-11-16 12:57 | A.OFFPC_ITS ---
Vital Signs 11/16/24 12:57 Height 5 ft 6 in Weight 212 lb BMI 34.2 BP 122/78 Blood Pressure Location Lt brachial Position Sitting Respiration 16 Pulse 60 Pulse Source Pulse Oximeter Temp 98.6 F Temp Source Oral Pulse Oximetry (%) 98 Oxygen Delivery Method Room Air Intake Visit Reasons: SAIDA Dr Lovett It Security Specialist Required: No Accompanied by: Alf [employer] Washer [employer] SupervisorEliseo Allergies No Known Allergies Allergy (Verified 11/16/24 13:14) Medication List - Last Reconciled 11/16/24 by ABDULLAHI Malik acetaminophen 650 mg (2 x 325 mg) PO Q4H PRN 30 days bacitracin topical 2 times a day if needed q12 hrs- minor scrapes, wounds, rash, thomson- pea sized amount dorzolamide-timolol 22.3-6.8 mg/mL 1 drp ophthalmic (eye) BID fluticasone propionate 50 mcg/actuation 2 sprays intranasal QAM guaifenesin (Adult Tussin Chest Congestion) 200 mg (10 mL) PO Q4H PRN ibuprofen 200 mg PO Q4H PRN olanzapine 5 mg PO QAM olanzapine 15 mg PO BEDTIME pediatric multivitamin no.42 (Children's Multivitamin chewable tablet) 1 tab PO QAM propranolol 60 mg PO BID sennosides (senna) 8.6 mg PO BEDTIME valproic acid (as sodium salt) 1,000 mg PO BID Tobacco use date assessed: 11/16/24 Dental Screening Dental Screen Date: 11/16/24 Did you have a dental visit in the last 12 months?: Yes Did you have a dental problem in the last 6 months where you did not have access to dental care?: No Was dental information given to patient?: Patient has dentist HPI SAIDA Dr Lovett HPI Details The patient is 54 year old male with cognitive impaired accompanied by [facility] staff. Here to transioned care from dr. lovett Past medical history significant psychosis, obesity There are concerns of hypercholesterolemia and elevated fasting glucose levels. His recent lab work from May showed a fasting glucose level of 147 mg/dL, compared to the previous reading of 98 mg/dL, suggesting potential dietary influence due to non-fasting. He does not have a diagnosis of diabetes. His lipid profile revealed high triglycerides and LDL cholesterol, which the patient acknowledges as a recent issue linked to dietary habits. Previously, the patient was able to manage his weight effectively and increased physical activity. However, current dietary habits include frequent consumption of high-cholesterol foods. He is considering dietary changes, such as increasing salad intake and making healthier food choices, to address the high cholesterol before opting for medication. The patient recalls previous success in dietary practices that resulted in weight loss and is encouraged to resume similar efforts. Denies chest pain, shortness of breath, heart palpitation or dizziness No abdominal pain/change in bowel habits Denies urinary symptoms PFSH Medical History Strain of left calf muscle Obesity H/O idiopathic seizure Lab test negative for COVID-19 virus Hx of anxiety disorder Hx of bipolar disorder Sleep apnea Cognitive developmental delay Surgical History Hx of colonoscopy S/P repair of hydrocele H/O rectal polypectomy H/O hernia repair Family History Father No problems noted. Mother No problems noted. Other Mental health disorder Social History Household Members Other:: resides in residential Housing: Apartment Housing Other:: residential Are you a primary physician locums urgent care to a significant other at home: No Do you presently have visiting nurse or other home services: No Alcohol intake: current Alcohol intake frequency: does not drink Patient Tobacco Use Status: Never used Tobacco e-Cigarette/Vaping Use: Never Used Second Hand Smoke Exposure: No service: No Current occupational status: unemployed Current occupation: developmental delay-resides in residential Cognitive needs: No Hearing needs: Yes (Hearing aids) Vision needs: No Questionnaire PHQ-9 Over the last 2 weeks, how often have you been bothered by any of the following problems? 1. Little interest or pleasure in doing things: not at all 2. Feeling down, depressed, or hopeless: not at all 3. Trouble falling or staying asleep, or sleeping too much: not at all 4. Feeling tired or having little energy: not at all 5. Poor appetite or overeating: not at all 6. Feeling bad about yourself - or that you are a failure or have let yourself or your family down: not at all 7. Trouble concentrating on things, such as reading the newspaper or watching television: not at all 8. Moving or speaking so slowly that other people could have noticed. Or the opposite - being so fidgety or restless that you have been moving around a lot more than usual: not at all 9. Thoughts that you would be better off or of hurting yourself in some way: not at all Total score: 0 Depression Screening Interpretation: Negative Depression Screening Done: Yes 98475 - PHQ-9 Billing: Yes Source: Developed by Drs. Juan Carlos Beasley, Kailey Mane, Jose White and colleagues, with an educational viola from [employer]. Thrive Questionnaire Date Thrive assessed: 11/16/24 I am a: Patient What is your living situation today?: I have a steady place to live Within the past 12 months, did the food you bought not last and you didn't have the money to get more?: Never true Within the past 12 months, did you worry whether your food would run out before you got money to buy more?: Never true Do you have trouble paying for medicines?: No Do you have trouble getting transportation to medical appointments?: No Do you have trouble paying your heating and electricity bill?: No Do you have trouble taking care of your child, family member or friend?: No Do you have trouble with day-to-day activities such as bathing, preparing meals, shopping, managing finances, etc.?: No Are you currently unemployed and looking for a job?: No Are you interested in more education?: No Please select the resources that you would like help with: None Currently or been in a relationship where the following occur: I choose not to answer THRIVE Score: 0 AUDIT C Alcohol Use Questionnaire (AUDIT-C) 1. How often do you have a drink containing alcohol?: Never Total Score: 0 Score Reviewed/Action Taken: No HOWARD-7 AMB Questionnaire HOWARD-7 Date HOWARD - 7 assessed: 11/16/24 Feeling nervous, anxious, or on edge: 0 = Not at all Not being able to stop or control worryin = Not at all Worrying too much about different things: 0 = Not at all Trouble relaxin = Not at all Being so restless that it is hard to sit still: 0 = Not at all Becoming easily annoyed or irritable: 0 = Not at all Feeling afraid as if something awful might happen: 0 = Not at all Total HOWARD-7 score (0-4 normal; 5-9 mild; 10-14 moderate; 15-21 severe): 0 Source: Developed by Drs. Juan Carlos Beasley, Kailey Mane, Jose White and colleagues, with an educational viola from [employer]. HOWARD-7 Assessment Billing HOWARD-7 Assessment Tool: HOWARD-7 Assessment 51645 Review of Systems Const Denies headache(s) Eyes Denies loss of vision ENT Denies vertigo, Denies dizziness, Denies headache(s) and Denies sore throat Card Denies chest pain, Denies leg edema and Denies lightheadedness Resp Denies cough, Denies hemoptysis and Denies wheezing GI Denies abdominal pain, Denies melena, Denies constipation, Denies diarrhea and Denies vomiting Denies dysuria, Denies urinary frequency and Denies urinary urgency Musc Reports arthralgias (Intermittent left knee pain), Denies joint swelling, Denies numbness and Denies tingling Neuro Denies Abnormal speech present, Denies behavioral changes, Denies vertigo, Denies dizziness, Denies headache(s), Denies loss of vision, Denies memory loss, Denies numbness and Denies tingling Psych Denies anxiety, Denies behavioral changes, Denies depression, Denies memory loss and Denies panic attacks Nilay/Lymph Denies easy bleeding and Denies easy bruising Aller/Immun Denies wheezing Physical exam (Primary Care) Vital Signs: Last Vital Signs Temp 98.6 F 11/16/24 12:57 Pulse 60 11/16/24 12:57 Resp 16 11/16/24 12:57 BP 122/78 11/16/24 12:57 Pulse Ox 98 11/16/24 12:57 Oxygen Delivery Method Room Air 11/16/24 12:57 BMI result Body Mass Index 34.2 Tobacco/Smoking Status: Tobacco use Status Tobacco use date assessed 11/16/24 11/16/24 12:59 Patient Tobacco Use Status Never used Tobacco 11/16/24 12:59 e-Cigarette/Vaping Use Never Used 11/16/24 12:59 PHQ-9: PHQ-9 Score PHQ-9: Total score 0 11/16/24 13:20 Depression Screening Interpretation: Negative Thrive Assessment: Date of Thrive Assessment Date Thrive assessed 11/16/24 11/16/24 13:10 Currently or been in a relationship where the following occur: I choose not to answer Const General: healthy appearing, no acute distress, alert and awake Nutritional Appearance: well nourished Orientation/consciousness: oriented to person, oriented to place and oriented to time HENMT Ears: TM's normal bilaterally General nose exam: Normal nasal mucous membranes and turbinates present Eyes Conjunctivae: conjunctivae normal Sclerae: sclerae normal Pupils: Equal, round and reactive pupils present Neck Neck: Yes no lymphadenopathy and Yes no JVD Thyroid: Thyroid normal Carotids: no bruits Resp Effort & Inspection: normal respiratory effort and not tachypneic Auscultation: no crackles, no rales, no rhonchi and no wheezes Cardio Rate: regular rate Rhythm: regular rhythm Heart sounds: no murmurs and normal S1 and S2 GI Inspection: Yes obesity Palpation (GI): Soft to palpation, nontender, no hepatomegaly and no splenomegaly Auscultation: normal bowel sounds Skin General skin exam: no rashes or lesions noted and dry skin Neuro General: oriented to person, oriented to place and oriented to time Cranial nerves: Yes Equal, round and reactive pupils present Speech: No Abnormal speech present Gait exam (Neuro): Normal gait present Motor exam (neuro): no tremor noted Extrem Right upper extremity: full ROM Left upper extremity: full ROM Right lower extremity: full ROM, edema and lower leg Details: pitting edema Details: 2+ Left lower extremity: full ROM, edema and lower leg Details: pitting edema Details: 2+ Psych Mental Status: mental status grossly normal Speech and movement: Normal speech and movement present Affect: normal affect Attitude: cooperative Thought process: Normal thought process present Coding Level of Care Code Est Pt Level 3 (91766) Diagnoses Mixed hypercholesterolemia and hypertriglyceridemia E78.2 Psychosis, unspecified psychosis type F29 Psychosis type: unspecified psychosis type Class 1 obesity without serious comorbidity with body mass index (BMI) of 34.0 to 34.9 in adult, unspecified obesity type E66.811; Z68.34 Body mass index: BMI 34.0-34.9 Obesity classification: adult class 1 (BMI 30 - 34.9) Obesity type: unspecified obesity type Serious obesity comorbidity presence: without serious comorbidity Cognitive developmental delay F81.9 Impaired fasting glucose R73.01 Leg swelling M79.89 Additional Codes HOWARD-7 Assessment Billing - HOWARD-7 Assessment Tool: HOWARD-7 Assessment 89866 ([id number]) PHQ-9 - 20595 - PHQ-9 Billing: Yes ([id number]) Time Spent (min) 33 Assessment & Plan Assessment & Plan (1) Mixed hypercholesterolemia and hypertriglyceridemia: Code(s): E78.2 - Mixed hyperlipidemia Category: Medical Plan: Discussed lifestyle modifications including dietary changes and physical activity (2) Psychosis: Code(s): F29 - Unspecified psychosis not due to a substance or known physiological condition Category: Medical Qualifiers: Psychosis type: unspecified psychosis type Qualified Code(s): F29 - Unspecified psychosis not due to a substance or known physiological condition Plan: Continue olanzapine 5 mg q.a.m. and olanzapine 15 mg at bedtime Continue valproic acid 1000 mg b.i.d. and propranolol 60 mg b.i.d. Follow up with Psychiatry as scheduled (3) Obesity: Code(s): E66.9 - Obesity, unspecified Category: Medical Qualifiers: Body mass index: BMI 34.0-34.9 Obesity classification: adult class 1 (BMI 30 - 34.9) Obesity type: unspecified obesity type Serious obesity comorbidity presence: without serious comorbidity Qualified Code(s): E66.811 - Obesity, class 1; Z68.34 - Body mass index [BMI] 34.0-34.9, adult Plan: Discussed lifestyle modifications including dietary changes and physical activity (4) Cognitive developmental delay: Code(s): F81.9 - Developmental disorder of scholastic skills, unspecified Category: Medical Plan: Continue engaging in group activities (5) Impaired fasting glucose: Code(s): R73.01 - Impaired fasting glucose Category: Medical Plan: Encouraged low sugar/carbohydrate diet and activity as tolerated We will recheck labs and add an A1c to further evaluate (6) Leg swelling: Code(s): M79.89 - Other specified soft tissue disorders Category: Medical Plan: Encouraged compression stockings Plan The patient will undergo dietary interventions for hypercholesterolemia, emphasizing increased intake of healthier foods like salads while reducing high- cholesterol and processed foods. Physical activity should be resumed to support weight and cholesterol management. Follow-up laboratory testing will assess improvements in glucose and lipid levels. Management will adjust based on lab outcomes, and compression stockings will address mild lower extremity swelling. Pharmacotherapy for hypercholesterolemia is not currently planned. Patient was informed and verbally consented to the use of an ambient scribe for clinic note documentation during this visit Orders: Orders Complete Blood Count Auto Diff 11/16/24 E66.9 - Obesity, unspecified, E78.2 - Mixed hyperlipidemia, F29 - Unspecified psychosis not due to a substance or known physiological condition, F81.9 - Developmental disorder of scholastic skills, unspecified UA CC w/rflx Micro + Cult 11/16/24 E66.9 - Obesity, unspecified, E78.2 - Mixed hyperlipidemia, F29 - Unspecified psychosis not due to a substance or known physiological condition, F81.9 - Developmental disorder of scholastic skills, unspecified TSH reflex Free T4 11/16/24 E66.9 - Obesity, unspecified, E78.2 - Mixed hyperlipidemia, F29 - Unspecified psychosis not due to a substance or known physiological condition, F81.9 - Developmental disorder of scholastic skills, unspecified Vitamin D 25-OH Total 11/16/24 E66.9 - Obesity, unspecified, E78.2 - Mixed hyperlipidemia, F29 - Unspecified psychosis not due to a substance or known physiological condition, F81.9 - Developmental disorder of scholastic skills, unspecified Hemoglobin A1c 11/16/24 R73.01 - Impaired fasting glucose Comprehensive [place]. Panel Fast 11/16/24 E66.9 - Obesity, unspecified, E78.2 - Mixed hyperlipidemia, F29 - Unspecified psychosis not due to a substance or known physiological condition, F81.9 - Developmental disorder of scholastic skills, unspecified Lipid Panel 11/16/24 E66.9 - Obesity, unspecified, E78.2 - Mixed hyperlipidemia, F29 - Unspecified psychosis not due to a substance or known physiological condition, F81.9 - Developmental disorder of scholastic skills, unspecified Valproate 11/16/24 E66.9 - Obesity, unspecified, E78.2 - Mixed hyperlipidemia, F29 - Unspecified psychosis not due to a substance or known physiological condition, F81.9 - Developmental disorder of scholastic skills, unspecified
== END 2024-11-16 13:48 | disposition home or self-care (01) ==
LOC: HO.HMCH 12:52
DX: E78.2 Mixed hyperlipidemia (principal); F29 Unspecified psychosis not due to a substance or known physiological condition; E66.811 Obesity, class 1; Z68.34 Body mass index [BMI] 34.0-34.9, adult; F81.9 Developmental disorder of scholastic skills, unspecified; R73.01 Impaired fasting glucose; M79.89 Other specified soft tissue disorders

== ENCOUNTER → 2024-11-16 12:52 | Outpatient (BNVA) | payer MEDICARE, MEDICAID, SELFPAY | DX: E78.2 Mixed hyperlipidemia (principal); F29 Unspecified psychosis not due to a substance or known physiological condition; E66.811 Obesity, class 1; Z68.34 Body mass index [BMI] 34.0-34.9, adult; F81.9 Developmental disorder of scholastic skills, unspecified; R73.01 Impaired fasting glucose; R60.0 Localized edema; Z71.3 Dietary counseling and surveillance | CPT/HCPCS: 96127; 99212 ==

== ENCOUNTER 2025-03-07 10:26 | Outpatient (REF) | payer MEDICARE, MEDICAID, SELFPAY ==
[2025-03-07 10:54] LABS: MANUAL DIFF FLAG NO
[2025-03-07 11:15] LABS: Hematocrit 40.8 % (42.0-52.0); Hemoglobin 13.9 g/dl (14.0-18.0); Imm Gran Abs Auto 0.03 X10*3/uL (0.00-0.03); Imm Gran Pct Auto 0.6 % (0.0-0.4); Lymphocytes Absolute Auto 1.6 X10*3/uL (1.2-4.9); Mean Corpuscular HGB Conc 34.1 g/dl (31.0-36.0); Mean Corpuscular Hemoglobin 30.2 pg (27.0-33.0); Mean Corpuscular Volume 88.5 fL (80.0-98.0); NRBC Abs Auto 0.000 X10*3/uL (0.0-0.012); NRBC Pct Auto 0.0 /100WBC (0.0-0.2); Platelet Count 125 X10*3/uL (160-400); Red Blood Count 4.61 X10*6/uL (4.60-5.80); White Blood Count 4.8 X10*3/uL (4.8-10.8)
[2025-03-07 11:21] LABS: Total Hemoglobin (HGBA1C) 3546.8751 umol/L
[2025-03-07 11:48] LABS: Alanine Aminotransferase 22 U/L (0-40); Albumin Level 3.8 g/dL (3.5-5.0); Alkaline Phosphatase 57 U/L (39-117); Anion Gap 8 (12-20); Aspartate Amino Transferase 23 U/L (5-37); Blood Urea Nitrogen 18 mg/dL (9-16); Calcium 8.3 mg/dL (8.4-10.2); Carbon Dioxide 32 mmol/L (22-29); Chloride 108 mmol/L (96-108); Cholesterol 212 mg/dL (<200); Estimated Glomerular Filt Rate > 60; HDL Cholesterol 32 mg/dL (>40); Potassium 4.1 mmol/L (3.3-5.1); Sodium 144 mmol/L (135-145); Total Protein 7.3 g/dL (6.5-8.0); Triglycerides 191 mg/dL (<150)
--- OUTSIDE RECORDS SUMMARY | 2025-03-07 12:03 | XMS_ITS | Patient Health Record ---
Author Organization [facility] Address [address] [place] [id number] Care Team Providers Care Corporate Controller Name Role Phone Lerma Juan Carlos Deacon [phone] Reason For Referral No Information Plan Of Treatment No Information
[2025-03-07 13:30] LABS: Appearance Urine Clear; Glucose Urine UA 250 mg/dL (Negative); PH 7.5 (5.0-9.0); Specific Gravity - Urine 1.015 (1.005-1.025)
== END 2025-03-07 10:27 | disposition home or self-care (01) ==
LOC: HO.LAB 10:26
DX: E78.2 Mixed hyperlipidemia (principal); R73.01 Impaired fasting glucose; F81.9 Developmental disorder of scholastic skills, unspecified; F29 Unspecified psychosis not due to a substance or known physiological condition; E66.9 Obesity, unspecified
CPT/HCPCS: 36415; 80053; 80061; 80164; 81003; 82306; 83036; 84443; 85025

== ENCOUNTER 2025-03-19 09:52 | Outpatient (AMB) | payer MEDICARE, MEDICAID, SELFPAY ==
--- NOTE | 2025-03-19 10:02 | MHC.PC.OV ---
Vital Signs 03/19/25 10:03 Height 5 ft 6 in Weight 220 lb 6 oz BMI 35.6 BP 130/68 Blood Pressure Location Lt brachial Position Sitting Pulse 69 Pulse Source Pulse Oximeter Temp 96.9 F Temp Source Temporal Artery Scan Pulse Oximetry (%) 95 Oxygen Delivery Method Room Air Intake Visit Reasons: cognitive delay/hld/igf Intake Note: Patient is here to follow up on Cognitive delay, HLD, IGF. Decal Maker Required: No Occupational Therapy Asst: Present Accompanied by: staff Allergies No Known Allergies Allergy (Verified 03/19/25 10:02) Tobacco use date assessed: 03/19/25 Dental Screening Dental Screen Date: 11/16/24 HPI cognitive delay/hld/igf HPI Details The patient is a 54-year-old male presenting follow for the review of recent blood work results and management of chronic conditions. The patient was found to be slightly anemic based on the complete blood count results. The anemia was described as mild and not concerning at this time. The patient was newly diagnosed with diabetes mellitus, confirmed by an A1c level of 6.6%. This diagnosis was made after noticing elevated glucose levels in October 2023, prompting further testing. The patient has not had an A1c test before, and the current level indicates a transition from prediabetes to diabetes. The patient also has hyperlipidemia, with a total cholesterol level of 212 mg/dL and LDL cholesterol at 142 mg/dL. The patient was advised that the combination of diabetes and elevated cholesterol increases the risk of cardiovascular events. Flu vaccine given in office today. [facility] Medical History Strain of left calf muscle Obesity H/O idiopathic seizure Lab test negative for COVID-19 virus Hx of anxiety disorder Hx of bipolar disorder Sleep apnea Cognitive developmental delay Surgical History Hx of colonoscopy S/P repair of hydrocele H/O rectal polypectomy H/O hernia repair Family History Father No problems noted. Mother No problems noted. Other Mental health disorder Social History Household Members Other:: resides in senior care Housing: Apartment Housing Other:: senior care Are you a primary critical care specialist to a significant other at home: No Do you presently have visiting nurse or other home services: No Alcohol intake: current Alcohol intake frequency: does not drink Patient Tobacco Use Status: Never used Tobacco e-Cigarette/Vaping Use: Never Used Second Hand Smoke Exposure: No service: No Current occupational status: unemployed Current occupation: developmental delay-resides in senior care Cognitive needs: No Hearing needs: Yes (Hearing aids) Vision needs: No Questionnaire Thrive Questionnaire Date Thrive assessed: 11/16/24 I am a: Patient What is your living situation today?: I have a steady place to live Within the past 12 months, did the food you bought not last and you didn't have the money to get more?: Never true Within the past 12 months, did you worry whether your food would run out before you got money to buy more?: Never true Do you have trouble paying for medicines?: No Do you have trouble getting transportation to medical appointments?: No Do you have trouble paying your heating and electricity bill?: No Do you have trouble taking care of your child, family member or friend?: No Do you have trouble with day-to-day activities such as bathing, preparing meals, shopping, managing finances, etc.?: No Are you currently unemployed and looking for a job?: No Are you interested in more education?: No Please select the resources that you would like help with: None Currently or been in a relationship where the following occur: I choose not to answer THRIVE Score: 0 HOWARD-7 AMB Questionnaire HOWARD-7 Date HOWARD - 7 assessed: 11/16/24 Source: Developed by Drs. Juan Carlos Beasley, Kailey Mane, Jose White and colleagues, with an educational viola from [employer]. Review of Systems Const Denies body aches, Denies chills, Denies fever(s), Denies headache(s) and Denies poor appetite Eyes Reports no additional complaints ENT Denies dysphagia, Denies dizziness, Denies headache(s) and Denies odynophagia Card Denies chest pain, Denies syncope, Denies edema, Denies irregular heart rhythm, Denies lightheadedness and Denies dyspnea Resp Denies cough and Denies dyspnea GI Denies abdominal pain, Denies constipation, Denies dysphagia, Denies diarrhea, Denies nausea, Denies odynophagia and Denies vomiting Reports no additional complaints Musc Reports arthralgias (right knee) Skin/Breast Reports system reviewed and no additional complaints, except as documented Neuro Denies dizziness, Denies syncope and Denies headache(s) Psych Reports no additional complaints Physical exam (Primary Care) Vital Signs: Last Vital Signs Temp 96.9 F 03/19/25 10:03 Pulse 69 03/19/25 10:03 BP 130/68 03/19/25 10:03 Pulse Ox 95 03/19/25 10:03 Oxygen Delivery Method Room Air 03/19/25 10:03 BMI result Body Mass Index 35.6 Tobacco/Smoking Status: Tobacco use Status Tobacco use date assessed 03/19/25 03/19/25 10:10 Patient Tobacco Use Status Never used Tobacco 03/19/25 10:10 e-Cigarette/Vaping Use Never Used 03/19/25 10:10 Thrive Assessment: Date of Thrive Assessment Date Thrive assessed 11/16/24 03/19/25 10:10 Currently or been in a relationship where the following occur: I choose not to answer Const General: cooperative, healthy appearing, comfortable and no acute distress Orientation/consciousness: patient oriented x3 HENMT Head: Yes normocephalic Ears: hearing grossly normal bilaterally General nose exam: Normal external nose present Eyes General: appearance normal, both eyes and all related structures Conjunctivae: conjunctivae normal Neck Neck: Yes full ROM and Yes no lymphadenopathy Resp Effort & Inspection: normal respiratory effort Auscultation: clear to auscultation bilaterally, no crackles, no rales, no rhonchi and no wheezes Cardio Rate: regular rate Rhythm: regular rhythm Heart sounds: S1 normal heart sound present and S2 normal heart sound present GI Inspection: Yes obesity Palpation (GI): Soft to palpation and nontender Auscultation: normal bowel sounds General: Yes no CVA tenderness Back/Spine/Pelvis Back: no CVA tenderness Skin General skin exam: no rashes or lesions noted Neuro General: patient oriented x3 Gait exam (Neuro): Normal gait present Extrem General: Yes normal to inspection, Yes full ROM and No edema Psych Affect: normal affect Attitude: cooperative Insight: Good insight present (Psych) Judgement: Good judgement present (Psych) Office Procedures Flu Questionnaire Does the patient have a severe egg allergy?: No Does the patient have severe life threatening allergies?: No Does the patient have a fever or illness today?: No Has the patient ever had Guillain-[place] Syndrome?: No Has the patient ever had any past reaction to a flu shot?: No Immunizations Fluarix [id number] (PF) 45 mcg (15 mcg x 3)/0.5 mL IM syringe Performing Provider: ABDULLAHI Malik [facility]forming [facility] [place] [facility] Administered by: Mariama Tovar LPN on 03/19/25 10:19 Dose Route Admin Location Dispensed Lot Number Expiration Date NDC Electronic Maintenance Supervisor 0.5 mL IM Right Deltoid 0.5 mL [id number] 12/03/25 70821-936-10 Revl VIS Given Date VIS Provided VIS Publication Date 03/19/25 Single Vaccine 24 Eligibility Eligibility Date Funding Source Not [facility] Eligible 03/19/25 Private Coding Level of Care Code Est Pt Level 4 (55492) Diagnoses Mixed hypercholesterolemia and hypertriglyceridemia E78.2 Psychosis, unspecified psychosis type F29 Psychosis type: unspecified psychosis type Class 1 obesity without serious comorbidity with body mass index (BMI) of 34.0 to 34.9 in adult, unspecified obesity type E66.811; Z68.34 Obesity type: unspecified obesity type Obesity classification: adult class 1 (BMI 30 - 34.9) Serious obesity comorbidity presence: without serious comorbidity Body mass index: BMI 34.0-34.9 Cognitive developmental delay F81.9 Type 2 diabetes mellitus with other specified complication, without long-term current use of insulin E11.69 Diabetes mellitus type: type 2 Diabetes mellitus regional intermodal truck driver insulin use: without fci use Diabetes mellitus complication status: with other specified complication Time Spent (min) 37 Assessment & Plan Assessment & Plan (1) Mixed hypercholesterolemia and hypertriglyceridemia: Code(s): E78.2 - Mixed hyperlipidemia Category: Medical Plan: The patient has hyperlipidemia with a total cholesterol level of 212 mg/dL and LDL cholesterol at 142 mg/dL. Triglycerides 191 decreased from 198 mg/dl. The management plan includes starting atorvastatin 10 mg daily, preferably taken at night to minimize side effects. Dietary modifications and increased physical activity are also recommended to help manage cholesterol levels. (2) Psychosis: Code(s): F29 - Unspecified psychosis not due to a substance or known physiological condition Category: Medical Qualifiers: Psychosis type: unspecified psychosis type Qualified Code(s): F29 - Unspecified psychosis not due to a substance or known physiological condition Plan: Continue olanzapine 5 mg q.a.m. and olanzapine 15 mg at bedtime Continue valproic acid 1000 mg b.i.d. and propranolol 60 mg b.i.d. Follow up with Psychiatry as scheduled (3) Obesity: Code(s): E66.9 - Obesity, unspecified Category: Medical Qualifiers: Obesity type: unspecified obesity type Obesity classification: adult class 1 (BMI 30 - 34.9) Serious obesity comorbidity presence: without serious comorbidity Body mass index: BMI 34.0-34.9 Qualified Code(s): E66.811 - Obesity, class 1; Z68.34 - Body mass index [BMI] 34.0-34.9, adult Plan: The patient gained 6 lbs since last visit. Discussed lifestyle modifications including dietary changes and physical activity (4) Cognitive developmental delay: Code(s): F81.9 - Developmental disorder of scholastic skills, unspecified Category: Medical Plan: Continue engaging in group activities (5) Diabetes mellitus: Code(s): E11.9 - Type 2 diabetes mellitus without complications Category: Medical Qualifiers: Diabetes mellitus type: type 2 Diabetes mellitus regional intermodal truck driver insulin use: without regional intermodal truck driver use Diabetes mellitus complication status: with other specified complication Qualified Code(s): E11.69 - Type 2 diabetes mellitus with other specified complication Plan: The patient was newly diagnosed with diabetes mellitus, confirmed by an A1c level of 6.6%. The management plan includes starting metformin 500mg once daily and dietary modifications focusing on low carbohydrate intake. The patient is advised to increase physical activity gradually and will have a follow-up in three months to reassess the condition. Plan Patient to return in 3 months. Preordered labs for follow up appointment. Orders: Orders Comprehensive [place]. Panel Fast 3 Months E11.9 - Type 2 diabetes mellitus without complications, E66.811 - Obesity, class 1, E78.2 - Mixed hyperlipidemia, F81.9 - Developmental disorder of scholastic skills, unspecified, R73.01 - Impaired fasting glucose, Z68.34 - Body mass index [BMI] 34.0-34.9, adult Lipid Panel 3 Months E11.9 - Type 2 diabetes mellitus without complications, E66.811 - Obesity, class 1, E78.2 - Mixed hyperlipidemia, F81.9 - Developmental disorder of scholastic skills, unspecified, R73.01 - Impaired fasting glucose, Z68.34 - Body mass index [BMI] 34.0-34.9, adult Influenza [id number] Immunization Today Z23 - Encounter for immunization Complete Blood Count Auto Diff 3 Months D64.9 - Anemia, unspecified, E11.9 - Type 2 diabetes mellitus without complications, E66.811 - Obesity, class 1, E78.2 - Mixed hyperlipidemia, F81.9 - Developmental disorder of scholastic skills, unspecified, R73.01 - Impaired fasting glucose, Z68.34 - Body mass index [BMI] 34.0-34.9, adult UA CC w/rflx Micro + Cult 3 Months E11.9 - Type 2 diabetes mellitus without complications, E66.811 - Obesity, class 1, E78.2 - Mixed hyperlipidemia, F81.9 - Developmental disorder of scholastic skills, unspecified, R73.01 - Impaired fasting glucose, Z68.34 - Body mass index [BMI] 34.0-34.9, adult TSH reflex Free T4 3 Months E11.9 - Type 2 diabetes mellitus without complications, E66.811 - Obesity, class 1, E78.2 - Mixed hyperlipidemia, F81.9 - Developmental disorder of scholastic skills, unspecified, R73.01 - Impaired fasting glucose, Z68.34 - Body mass index [BMI] 34.0-34.9, adult Vitamin D 25-OH Total 3 Months E11.9 - Type 2 diabetes mellitus without complications, E66.811 - Obesity, class 1, E78.2 - Mixed hyperlipidemia, F81.9 - Developmental disorder of scholastic skills, unspecified, R73.01 - Impaired fasting glucose, Z68.34 - Body mass index [BMI] 34.0-34.9, adult Vitamin B12 and Folate 3 Months D64.9 - Anemia, unspecified, E11.9 - Type 2 diabetes mellitus without complications, E66.811 - Obesity, class 1, E78.2 - Mixed hyperlipidemia, F81.9 - Developmental disorder of scholastic skills, unspecified, R73.01 - Impaired fasting glucose, Z68.34 - Body mass index [BMI] 34.0-34.9, adult Hemoglobin A1c 3 Months E11.9 - Type 2 diabetes mellitus without complications, E66.811 - Obesity, class 1, E78.2 - Mixed hyperlipidemia, F81.9 - Developmental disorder of scholastic skills, unspecified, R73.01 - Impaired fasting glucose, Z68.34 - Body mass index [BMI] 34.0-34.9, adult Medications: New atorvastatin (Lipitor) 10 mg PO BEDTIME 30 tabs 3RF metformin 500 mg PO DAILY 30 tabs 3RF
[2025-03-19 10:03] VITALS: BP 130/68; PULSE 69; TEMP 36.1; O2SAT 95; BMI 35.6
--- OUTSIDE RECORDS SUMMARY | 2025-03-19 11:12 | XMS_ITS | Patient Health Record ---
Author Organization [facility] Address [address] [place] [id number] Care Team Providers Care Systems Consultant Name Role Phone Lerma Juan Carlos Deacon [phone] Reason For Referral No Information Plan Of Treatment No Information
== END 2025-03-19 10:50 | disposition home or self-care (01) ==
LOC: HO.HMCH 09:53
DX: E11.69 Type 2 diabetes mellitus with other specified complication (principal); F29 Unspecified psychosis not due to a substance or known physiological condition; E66.811 Obesity, class 1; Z68.34 Body mass index [BMI] 34.0-34.9, adult; E78.2 Mixed hyperlipidemia; F81.9 Developmental disorder of scholastic skills, unspecified; Z23 Encounter for immunization

== ENCOUNTER → 2025-03-19 09:52 | Outpatient (BNVA) | payer MEDICARE, MEDICAID, SELFPAY | DX: E78.2 Mixed hyperlipidemia (principal); E11.69 Type 2 diabetes mellitus with other specified complication; F29 Unspecified psychosis not due to a substance or known physiological condition; E66.811 Obesity, class 1; F81.9 Developmental disorder of scholastic skills, unspecified; Z23 Encounter for immunization; Z68.34 Body mass index [BMI] 34.0-34.9, adult | CPT/HCPCS: 90471; 90656; 99212 ==